=== PATIENT | female | born 1960 | race Two or more races ===

== ENCOUNTER → 2017-11-26 | Day surgery (SDC) | payer BC ==
[~2017-11-26] MED LIST: IV RINGERS,LACTATED 1000ML 1,000 ML IV SCH; LIDOCAINE 2% PF Vial for OR 5 ML VIAL. ONE; OMEP40CA5 PO; PROPOFOL 20 ML IV ONE
[2017-11-26 08:40] VITALS: BP 101/59
== END | disposition home or self-care (01) ==
LOC: SURG 06:56
PROVIDERS: ATTEND Internal Medicine Gastroenterology
DX: Z12.11 Encounter for screening for malignant neoplasm of colon (principal); K57.30 Diverticulosis of large intestine without perforation or abscess without bleeding; K64.0 First degree hemorrhoids; Z82.49 Family history of ischemic heart disease and other diseases of the circulatory system; Z79.899 Other long term (current) drug therapy
CPT/HCPCS: 45378; J2001; J2704